=== PATIENT | female | born 1975 | race Caucasian/White ===

== ENCOUNTER 2021-06-26 14:03 | Emergency (ER) | payer BC, OTHER ==
[2021-06-26 14:57] VITALS: BP 163/96; PULSE 104; TEMP 98.2; BMI 31.8
[2021-06-26] MEDS ORDERED: ACETAMINOPHEN 1000 MG/100 ML BAG IVPB ONE (15:40)
[2021-06-26] MEDS ORDERED: METOCLOPRAMIDE HCL INJECTION 10 MG/2 ML VIAL IVPB ONE (15:40)
[2021-06-26] MEDS ORDERED: SODIUM CHLORIDE 0.9% 500 ML INFUS.BAG IV ONE (15:47)
[2021-06-26] MEDS ORDERED: MECLIZINE HCL 25 MG TABLET (FP) PO ONE (15:56)
[2021-06-26] MEDS ORDERED: ACETAMINOPHEN INJECTION 100 ML IVPB ONE (15:59)
[2021-06-26] MEDS ORDERED: MECLIZINE HCL 25 MG TABLET (FP) ONE (15:59)
[2021-06-26] MEDS ORDERED: METOCLOPRAMIDE HCL INJECTION 10 MG/2 ML VIAL ONE (15:59)
[2021-06-26 17:01] LABS: BASO % 0.5 % (0-2.0); EOS % 1.3 % (0-4.5); HEMATOCRIT 36.5 % (32.4-45.2); HEMOGLOBIN 12.4 GM/dL (10.7-15.3); LYMPH % 32.8 % (8-40); MCH 28.7 pg (25.7-33.7); MCHC 33.9 g/dl (32.0-36.0); MEAN CELL VOLUME 84.7 fl (80-96); MEAN PLT VOLUME 7.7 fl (7.5-11.1); MONO % 6.3 % (3.8-10.2); NEUT % 59.1 % (42.8-82.8); PLATELET COUNT 307 10^3/uL (134-434); RBC 4.31 M/mm3 (3.60-5.2); RDW 13.2 % (11.6-15.6); WHITE BLOOD COUNT 8.7 K/mm3 (4.0-10.0)
[2021-06-26 17:36] LABS: ALBUMIN 4.1 g/dl (3.4-5.0); CALCIUM 9.4 mg/dL (8.5-10.1)
[2021-06-26 17:37] LABS: BLOOD UREA NITROGEN 18.8 mg/dL (7-18); MAGNESIUM 2.3 mg/dL (1.8-2.4)
[2021-06-26 17:40] LABS: CREATININE 0.7 mg/dL (0.55-1.3)
[2021-06-26 17:41] LABS: BILIRUBIN,TOTAL 0.3 mg/dL (0.2-1); TOT PROT 7.1 g/dl (6.4-8.2)
== END 2021-06-26 22:08 | disposition left against medical advice (07) ==
LOC: JER 14:03
PROC: 3E033GC Introduction of Other Therapeutic Substance into Peripheral Vein, Percutaneous Approach (ICD-10-PCS; principal; 2021-06-26)
DX: R07.9 Chest pain, unspecified (principal); R42 Dizziness and giddiness; R51.9 Headache, unspecified
CPT/HCPCS: 36415; 70450-TC; 71046-TC-FY; 80053; 83735; 84484; 85025; 93005; 93010; 99285-25

== ENCOUNTER 2021-06-28 14:47 | Emergency (ER) | payer BC ==
[2021-06-28 14:54] VITALS: PULSE 78; TEMP 98.1; BMI 33.3
[2021-06-28] MEDS ORDERED: KETOROLAC TROMETHAMINE 60 MG/2 ML VIAL IM ONE (16:05)
[2021-06-28] MEDS ORDERED: KETOROLAC TROMETHAMINE 30 MG/1 ML VIAL ONE (16:15)
[2021-06-28 17:05] VITALS: BP 138/105
== END 2021-06-28 17:08 | disposition home or self-care (01) ==
LOC: FER 14:47
PROC: 3E023GC Introduction of Other Therapeutic Substance into Muscle, Percutaneous Approach (ICD-10-PCS; principal; 2021-06-28)
DX: G44.209 Tension-type headache, unspecified, not intractable (principal); I10 Essential (primary) hypertension
CPT/HCPCS: 99284-25